=== PATIENT | male | born 1965 | race Caucasian/White ===

== ENCOUNTER 2019-09-11 12:56 | Outpatient (CLI) | payer OTHER, SELFPAY ==
--- NOTE | ~2019-09-11 | CT_ITS ---
EXAMINATION: 1. CT pelvis w con 2. CT femur RT w con DATE: 09/11/2019 14:21 INDICATION: Right groin bulge. TECHNIQUE: Computed tomography (CT) of the pelvis and right femur was performed with 100 mL Omnipaque 350 intravenous contrast. Automated exposure control and iterative reconstruction technique were emp loyed. The dose-length product was 741.41 mGy-cm. COMPARISON: None FINDINGS: CT PELVIS: There are no dilated loops of bowel. There is diverticulosis of the colon without evidence of diverticulitis. The appendix is normal. There is right inguinal, right external iliac, and right common iliac lymphadenopathy. The largest node is in the right inguinal chain and measures 3.8 x 2.3 cm. There is fat stranding around the right inguinal and right external iliac nodes. There is no free intraperitoneal fluid. There is severe lumbar spondylosis. CT RIGHT FEMUR: Bone alignment is normal. No fracture. There is mild right hip and knee osteoarthriti s. Again noted is right inguinal and external iliac lymphadenopathy. IMPRESSION: 1. Right pelvic lymphadenopathy, which may be reactive or less likely metastatic disease or lymphoma. Reviewed, dictated and finalized at location A. IMPRESSION: 1. Right pelvic lymphadenopathy, which may be reactive or less likely metastati c disease or lymphoma.
[2019-09-11 13:49] LABS: Estimated Glomerular Filt Rate > 60
== END 2019-09-11 12:57 | disposition home or self-care (01) ==
LOC: ANHIMG 13:04
PROVIDERS: PCP Internal Medicine; Visit Provider Surgery
DX: R59.0 Localized enlarged lymph nodes (principal)
CPT/HCPCS: 36415; 72193; 73701; Q9967

== ENCOUNTER 2019-09-14 11:59 | Outpatient (CLI) | payer OTHER, SELFPAY ==
--- NOTE | ~2019-09-14 | US_ITS ---
EXAMINATION: US biopsy lymph node DATE: 09/14/2019 13:15 INDICATION: Right inguinal lymphadenopathy. TECHNIQUE: The procedure including the risks, benefits, and alternatives was discussed with the patie nt. Risks discussed included bleeding and infection. The patient understood the risks and agreed to p roceed. The skin overlying the right inguinal region was prepped and draped in usual sterile fashion. Anesthetic was administered with 1% lidocaine subcutaneously. An 18 gauge core biopsy needle was t hen used to obtain 6 core biopsy specimens under continuous sonographic guidance. The entry site was cleaned and dressed. There were no immediate complications. FINDINGS: Ultrasound images demonstrate the needle in a 7.0 x 2.0 cm right inguinal lymph node. IMPRESSION: 1. Ultrasound-guided core needle biopsy of a right inguinal lymph node. Reviewed, dictated and finalized at location A.
[2019-09-14 12:25] LABS: Basophils Absolute Auto 0.1 K/mm3 (0.0-0.1); Basophils Percent Auto 1.1 % (0.2-1.2); Eosinophils Absolute Auto 0.5 K/mm3 (0-0.3); Eosinophils Percent Auto 5.4 % (0-4.4); Hematocrit 42.7 % (42.0-52.0); Hemoglobin 14.3 g/dL (14.0-18.0); Immature Granulocyte Absolute 0.05 K/mm3 (0.00-0.031); Immature Granulocyte Percent A 0.6 % (0-0.5); Lymphocytes Absolute Auto 2.23 K/mm3 (0.9-3.2); Lymphocytes Percent Auto 26.6 % (18.3-44.2); Mean Corpuscular HGB Conc 33.5 g/dl (32-36); Mean Corpuscular Hemoglobin 30.9 pg (26-34); Mean Corpuscular Volume 92.2 fl (80-100); Mean Platelet Volume 8.6 fl (7.4-10.4); Monocytes Percent Auto 11.4 % (2.6-8.5); Neutrophils Absolute Auto 4.6 K/mm3 (1.3-6.7); Neutrophils Percent Auto 54.9 % (45.5-73.1); Platelet Count Result 324 k/mm3 (150-375); Red Blood Count 4.63 M/mm3 (4.6-6.20); Red Cell Distribution Width 12.4 % (11.5-14.5); White Blood Count 8.4 K/mm3 (4.5-10.0)
== END 2019-09-14 12:00 | disposition home or self-care (01) ==
PROVIDERS: PCP Internal Medicine; Visit Provider Surgery
DX: R22.41 Localized swelling, mass and lump, right lower limb (principal); I88.9 Nonspecific lymphadenitis, unspecified
CPT/HCPCS: 36415; 38505; 76942; 85025; 88305; 88312